=== PATIENT | female | born 2000 | race Caucasian/White ===

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

== ENCOUNTER 2022-01-24 22:44 | Emergency (ER) | payer MEDICAID ==
[2022-01-24 23:18] LABS: HEMOGLOBIN 10.8 gm/dl (12.3-15.3); RED BLOOD COUNT 3.82 M/UL (4.00-5.10); WHITE BLOOD COUNT 8.3 K/UL (4.5-11.0)
[2022-01-24 23:38] LABS: BUN/CREATININE RATIO 16 (0-10)
== END 2022-01-25 02:08 | disposition home or self-care (01) ==
LOC: ER1 22:44
PROVIDERS: Physician Assistant Medical
DX: I10 Essential (primary) hypertension (principal)
CPT/HCPCS: 71045; 80053; 81001; 82550; 82553; 84484; 85025; 93005; 99284

== ENCOUNTER 2022-02-09 15:37 | Emergency (ER) | payer OTHER ==
[2022-02-09] MEDS ORDERED: FERROUS SULFAT325 M2 PO (16:21)
== END 2022-02-09 16:50 | disposition home or self-care (01) ==
LOC: ER1 15:37
DX: D50.9 Iron deficiency anemia, unspecified (principal); F17.290 Nicotine dependence, other tobacco product, uncomplicated
CPT/HCPCS: 99283